=== PATIENT | male | born 1950 | race Caucasian/White ===

== ENCOUNTER 2024-01-10 08:09 | Outpatient (CLI) | payer MEDICARE, OTHER | END 2024-01-10 08:10 | disposition home or self-care (01) | LOC: CSHSLEEP 08:09 | PROVIDERS: ATTEND Internal Medicine Critical Care Medicine | DX: G47.33 Obstructive sleep apnea (adult) (pediatric) (principal); R53.83 Other fatigue; R06.83 Snoring; G47.61 Periodic limb movement disorder | CPT/HCPCS: 95811 ==